=== PATIENT | male | born 1995 | race Two or more races ===

== ENCOUNTER 2019-01-08 02:11 | Emergency (ER) | payer MEDICAID ==
[2019-01-08] MEDS ORDERED: DEXAMETHASONE 4 MG/ML VIAL IVP ONE (03:00)
[2019-01-08] MEDS ORDERED: METOCLOPRAMIDE 10 MG/2 ML VIAL IVP ONE (03:00)
[2019-01-08] MEDS ORDERED: KETOROLAC 15 MG/1 ML SDV IVP/IM ONE (03:00)
--- NOTE | 2019-01-08 03:03 | EDPHY ---
H & P Stated Complaint: MIGRAINE FOR 3 AYS Time Seen by Provider: 01/08/19 02:37 HPI/ROS: HPI The patient presents with intermittent headache which has been present for the last 3 weeks. It started slowly, is in his right frontal region, is throbbing in nature and associated with nausea as well as photophobia. He has had migraines over the last 10 years and this feels very similar. He has been to the [facility] emergency department twice for this and was treated with IV fluids and medication which helped his headache. He went to see the neurologist and was started on sumatriptan which he took 2 doses of tonight without any relief. He is scheduled for an MRI in 4 days of his brain. He is concerned because his sister has a history of a brain tumor and also had headaches. REVIEW OF SYSTEMS 10 systems were reviewed and negative with the exception of the elements mentioned in the history of present illness. PMHx: Anxiety, migraines Soc Hx: Smokes cigarettes PHYSICAL General Appearance: Alert, no distress Eyes: Pupils equal and round no pallor or injection ENT, Mouth: Mucous membranes moist Respiratory: There are no retractions, lungs are clear to auscultation Cardiovascular: Regular rate and rhythm Gastrointestinal: Abdomen is soft and non-tender, no masses, bowel sounds normal Neurological: A&O, cranial nerves 2-12 intact, 5/5 strength in upper and lower extremities which is symmetric Skin: Warm and dry, no rashes Musculoskeletal: Neck is supple non tender Extremities: symmetrical, full range of motion Psychiatric: Patient is oriented X 3, there is no agitation Source: Patient Exam Limitations: No limitations - Personal History Current Tetanus/Diphtheria Vaccine: Yes Current Tetanus Diphtheria and Acellular Pertussis (TDAP): Yes - Medical/Surgical History Hx Asthma: No Hx Chronic Respiratory Disease: No Hx Diabetes: No Hx Cardiac Disease: No Hx Renal Disease: No Hx Cirrhosis: No Hx Alcoholism: No Hx HIV/AIDS: No Hx Splenectomy or Spleen Trauma: No Other PMH: Anxiety, Migraines - Social History Smoking Status: Current every day smoker Constitutional: Initial Vital Signs Temperature (C) 36.6 C 01/08/19 02:17 Heart Rate 83 01/08/19 02:17 Respiratory Rate 18 01/08/19 02:17 Blood Pressure 141/87 H 01/08/19 02:17 O2 Sat (%) 97 01/08/19 02:17 O2 Delivery Mode Room Air Allergies/Adverse Reactions: No Known Allergies Allergy (Unverified 12/22/14 23:37) Home Medications: Medication Instructions Recorded Ibuprofen [Advil Migraine] 200 mg PO 12/22/14 SUMAtriptan 01/08/19 Medical Decision Making Differential Diagnosis: 24-year-old male with history of migraine-type headaches and anxiety presents with 3 weeks of intermittent unilateral throbbing headache associated with photophobia and nausea. Took 2 doses of sumatriptan today without improvement in his symptoms. No neurologic deficits on exam. Suspect migraine-type headache. Would also consider tension type headache. Doubt mass, however it is a consideration. Given patient has MRI appointment in just a few days with no neurologic deficits, will not obtain any imaging tonight. I will treat his pain. On reassessment, patient's headache was completely gone and he felt much better. I plan to discharge him with follow-up in a few days for MRI. - Data Points Medications Given: Discontinued Medications Dexamethasone (Decadron Injection) 8 mg IVP EDNOW ONE Stop: 01/08/19 03:01 Last Admin: 01/08/19 03:22 Dose: 8 mg Diphenhydramine HCl (Benadryl Injection) 25 mg IVP EDNOW ONE Stop: 01/08/19 03:22 Last Admin: 01/08/19 03:22 Dose: 25 mg Ketorolac Tromethamine (Toradol) 15 mg IVP/IM EDNOW ONE Stop: 01/08/19 03:01 Last Admin: 01/08/19 03:22 Dose: 15 mg Metoclopramide HCl (Reglan Injection) 10 mg IVP EDNOW ONE Stop: 01/08/19 03:01 Last Admin: 01/08/19 03:22 Dose: 10 mg Departure - Departure Disposition: Home, Routine, Self-Care Clinical Impression: Migraine headache Qualifiers: Migraine type: unspecified Status migrainosus presence: without status migrainosus Intractability: not intractable Qualified Code(s): G43.909 - Migraine, unspecified, not intractable, without status migrainosus Condition: Good Instructions: Migraine Headache (ED) Additional Instructions: Please follow-up with the neurologist as planned. I recommend you take ibuprofen or Excedrin migraine as needed for your headache. Referrals: Alex Stevens PA [Physician Process Planner] - As per Instructions
[2019-01-08 05:42] VITALS: BP 118/85
== END 2019-01-08 06:28 | disposition home or self-care (01) ==
DX: G43.909 Migraine, unspecified, not intractable, without status migrainosus (principal)
CPT/HCPCS: 96374; J1100; J1200; J1885; J2765

== ENCOUNTER → 2019-01-17 | Outpatient (CLI) | payer MEDICAID ==
[~2019-01-17] MED LIST: GADOBUTROL 10 ML VIAL IVP ONE
== END ==
LOC: FIMAGING 06:37
PROVIDERS: ATTEND Physician Assistant Medical
DX: G43.009 Migraine without aura, not intractable, without status migrainosus (principal); M54.2 Cervicalgia; Z84.89 Family history of other specified conditions
CPT/HCPCS: A9585